=== PATIENT | male | born 1970 | race Caucasian/White ===

== ENCOUNTER 2023-04-23 11:59 | Day surgery (SDC) | payer BC ==
--- NOTE | 2023-04-20 11:33 | RAD REPORT ---
EXAM DESCRIPTION: RAD - Chest Pa And Lat (2 Views) - 04/20/2023 11:25 am CLINICAL HISTORY: Pre op pending mass removal right foot COMPARISON: No comparisons FINDINGS: Lines: None. Lungs: No evidence of edema or pneumonia. Pleural: No significant pleural effusions or pneumothorax. Cardiac: The heart size is within normal limits. Mediastinum: Within normal limits. Bones: No acute fractures. Other: None IMPRESSION: No acute cardiopulmonary disease.
[2023-04-20 12:00] LABS: Absolute Eosinophils 0.1 K/uL (0-0.5); Absolute Lymphocytes (CBC) 1.4 K/uL (0.7-4.9); Absolute Monocytes 0.5 K/uL (0.1-1.3); Absolute Neutrophil 3.3 K/uL (1.8-8.0); Basophils % 0.3 % (0-1.3); Eosinophils % 1.1 % (0-4.4); Hematocrit 40.9 % (39.6-49.0); Hemoglobin 14.1 g/dL (13.6-17.9); Lymphocytes % 27.3 % (15.3-44.8); MCH 32.5 pg (27.0-35.0); MCHC 34.5 g/dL (32.0-36.0); MCV 94.3 fL (80-100); MPV 8.3 fL (7.6-11.3); Monocytes % 9.3 % (3.3-12.3); Nucleated Red Blood Cells % 0.1 % (0-0); Platelets 257 thou/uL (152-406); RBC Red Blood Cell Count 4.34 M/uL (4.33-5.43); Red Cell Distribution Width 12.7 % (12.1-15.2)
[2023-04-20 12:15] LABS: Anion Gap 8.7 mEq/L (5.0-15.0); Potassium 4.7 mEq/L (3.5-5.1)
--- NOTE | 2023-04-20 17:03 | EKG ---
Test Date: 2023-04-20 Test Time: 12:09:31 Hand Stonecutter: KALANI MEASUREMENT RESULTS: Intervals: Rate: 54 IL: 162 QRSD: 90 QT: 424 QTc: 402 [place]: P: 50 IL: 162 QRS: 37 T: 35 INTERPRETIVE STATEMENTS: Sinus bradycardia Low voltage QRS Borderline ECG No previous ECG available for comparison Electronically Signed On 04-20-23 17:02:10 CATALYST IMPREGNATOR by Jesus Manuel Mock
--- NOTE | 2023-04-21 17:48 | PREOPHP ---
Date of Admission: 04/23/2023 History Of Present Illness: This patient presented to my office with a chief complaint of a soft tis doyle mass growing on the side of his right foot at the fifth MPJ present for approximately 4 months, w orse with activity, soreness, throbbing. Severity is moderate. The patient requests surgical evalua tion. Review of Systems: Positive for low back pain. Medical History: High cholesterol, hypertension, and obesity. Surgical History: Unremarkable. Family History: Father is diagnosed with cancer, heart disease. Social History: The patient is an occasional smoker. The patient does drink alcohol socially. No recreational drug use. Current Medications: Include lisinopril 20 mg and simvastatin 40 mg. Allergies: NKDA. Physical Examination: Vital Signs: Height is 72 inches, weight 265 pounds. General appearance: Healthy, well developed, well nourished, well oriented x3. Vascular: Evaluation reveals dorsalis pedis and posterior tibial pulses to be 4 bilaterally. Capill casi refill time is less than 3 seconds to all toes. Temperature gradient is within normal limits. T here is no claudication complaint, varicosities, or signs of DVT bilaterally. Musculoskeletal: Evaluation shows a rigid cavus foot type bilaterally. Subtalar joint shows normal position bilaterally. Forefoot shows supinates in the adductus bilaterally. Equinus is noted to be 0 degrees bilaterally per goniometer measurement. There is a subcutaneous soft tissue mass located a t the fifth MPJ on the right foot. It is slightly movable under the skin. It measures approximately 4 cm x 3.5 cm with no skin changes seen. Lower extremity muscle strength is equal and symmetrical b ilaterally. Knees are noted to be normal alignment. Ankle is in normal alignment bilaterally. Gait is within normal limits. No tenderness on palpation of the plantar fascia. Skin: Evaluation reveals no rash, ulcer, tumor, or contracture except mild callus sub fifth MPJ bila terally. Neurologic: Evaluation reveals deep tendon reflexes for the patellar and Achilles to be 5/5 bilatera lly. Vibratory and sharp dull sensation is within normal limits. Imaging: X-ray evaluation of the patient is unremarkable with no soft tissue changes or bone changes seen in the area of the fifth MPJ on the right foot. MRI evaluation shows a 3 cm x 2.8 cm x 1.3 cm ovoid mass hyperintense in the T2 phase consistent with the cystic lesions, smooth linear peripheral enhancement, but no definitive internal enhancement or nodularity. Assessment: Soft tissue mass, right foot; pain in right foot. The treatment plan is for excision of soft tissue mass for biopsy. The patient understands that no exact diagnosis can be given until the growth is excised and sent for pathology. The patient will have scheduled surgery after his trip at the end of March, so as now to return to the office for surgery. He was originally seen a few mo nths ago. The surgery was explained to the patient necessitating possible crutches, stitches for mae roximately 2 weeks. The patient understands risks, benefits, alternatives of the above-mentioned pro cedure including, but not limited to the risk of pain, swelling, numbness, stiffness, infection, recu rrence of the soft tissue mass and continued pain and scarring. The patient will be medically evalua kait by Anesthesia. Preoperative labs have been performed. The patient has been dispensed bandaging dry postoperatively, has been instructed on use of cold therapy unit. Postop medications for pain were sent to the pharmacy for the patient. The patient is scheduled for surgery at the [facility] on April 23, 2023. FERNANDO Voice ID: [id number]
[2023-04-23] MEDS ORDERED: Ringers Lactate 1,000 ML IV ONE (12:17)
[2023-04-23] MEDS ORDERED: LIDOCAINE 1% MPF 5 ML VIAL ONE (13:28)
[2023-04-23] MEDS ORDERED: propofoL 200 MG/20 ML VIAL IV ONE (13:28)
[2023-04-23] MEDS ORDERED: MIDAZOLAM HCL 2 MG/2 ML INJ ONE (13:29)
[2023-04-23] MEDS ORDERED: FENTANYL CITR 100 MCG/2 ML ONE (13:29)
[2023-04-23] MEDS: CEFAZOLIN SODIUM 1 GM/VIAL ONE (13:40)
[2023-04-23] MEDS ORDERED: dexAMETHasone 10 MG/ML VIAL ONE (13:51)
[2023-04-23] MEDS ORDERED: ONDANSETRON 4 MG/2 ML VIAL ONE (13:51)
[2023-04-23] MEDS ORDERED: KETOROLAC 30 MG/ML INJ ONE (13:51)
[2023-04-23 17:04] VITALS: BP 118/68; TEMP 97.2; O2SAT 98
--- NOTE | 2023-04-24 01:48 | OP ---
Date of Procedure: 04/23/2023 Surgeon: Ignacio Weaver DPM Preoperative Diagnosis: Soft tissue mass, right foot fifth metatarsophalangeal joint laterally and p lantarly. Postoperative Diagnosis: Soft tissue mass, right foot fifth metatarsophalangeal joint laterally and plantarly. Procedure: Excision of soft tissue mass, fifth metatarsophalangeal joint, right foot. Anesthesia: General. Description Of Procedure: Patient was brought into the operating room, placed on the operating room table in supine position. General anesthesia was induced. The patient was prepped and draped in the usual sterile manner and the right extremity was elevated to 60 degrees to exsanguinate the blood carrillo pply. Pneumatic ankle tourniquet was elevated to 250 mmHg. Attention was then directed to the fifth MPJ laterally where a 6 cm incision was made along the lateral aspect of the fifth metatarsal shaft extending onto the base of the proximal phalanx area of the fifth toe. The incision was deepened via sharp and blunt dissection. All neurologic structures were avoided. All bleeders were clamped and bovied. Utilizing sharp and blunt dissection, skin was with a good layer away from the sof t tissue mass, which was immediately visible underneath the skin. The area was dissected with blunt dissection dorsally until we reached the fifth metatarsal shaft and the soft tissue mass, w hich was fibrously attached to the soft tissue around the fifth metatarsal shaft. It was then freed distally and proximally along the dorsal area. Next, plantar approach was made, dissectin g bluntly and freeing the area. The dorsal medial edge of the mass was and loosened and th is was then grabbed with an iris clamp and pulled to create tension and blunt and scissor dissection was utilized to free it from its soft tissue. There were numerous small capillaries, which were bovi ed as they were encountered. The soft tissue mass extended deep plantarly to the fifth metatarsal he ad. It was freed with blunt dissection and scissor dissection and then reflected proximally plantarl y to just past the fifth metatarsal neck where the soft tissue mass was and it was freed from its fib rotic attachments to the soft tissue. It was removed in total measuring approximately 3 cm x 3.5 cm. It was a solid growth well demarcated, but with some extensions that were dissected free from soft tissue. There was no capsule around the growth. The area was flushed with copious amount s of sterile saline. Any bleeders were bovied. There area was flushed with copious amounts sterile saline again. The subcutaneous tissue was closed utilizing 2-0 Vicryl suture. Skin was closed utili zing 4-0 Prolene horizontal mattress suture. The area was injected with 10 cc of 0.5% plain in a blo ck around the fifth metatarsal shaft. The area was then dressed with Adaptic, dry sterile gauze, dry sterile Ange, Kerlix, cold therapy pad, and Joce bandaging. Pneumatic ankle tourniquet was deflated and capillary return was seen to be instantaneous to all toes including the fifth toe. The patient was sent to Recovery in satisfactory condition. FERNANDO Voice ID: [id number] Report ID: [id number]
--- NOTE | 2023-04-24 01:51 | DS ---
Date of Discharge: 04/23/2023 Date Of Surgery: 04/23/2023 Surgeon: Ignacio Weaver DPM Preoperative Diagnosis: Soft tissue mass, right foot fifth metatarsophalangeal joint area. Postoperative Diagnosis: Soft tissue mass, right foot fifth metatarsophalangeal joint area. Procedure: Excision of soft tissue mass right foot fifth metatarsophalangeal joint area. Anesthesia: General. Patient tolerated the procedure and anesthesia well. Local anesthesia was used was injected postoper atively, 10 cc of 0.5% Marcaine plain. The patient will be sent to the same-day surgery, will be bekah wn crutch walking with 4-point gait and a postop shoe. The patient has a cold therapy unit in place and running. The patient has written postop instructions as well as emergency phone number and posto p medication for pain. The patient will be discharged to home for Anesthesia guidelines. FERNANDO Voice ID: [id number] Report ID: [id number]
== END 2023-04-23 16:35 | disposition home or self-care (01) ==
LOC: OR 11:59
PROVIDERS: ATTEND Podiatrist
PROC: 0JBQ0ZZ Excision of Right Foot Subcutaneous Tissue and Fascia, Open Approach (ICD-10-PCS; principal; 2023-04-23 13:30)
DX: D21.21 Benign neoplasm of connective and other soft tissue of right lower limb, including hip (principal); M79.671 Pain in right foot; I10 Essential (primary) hypertension; E78.00 Pure hypercholesterolemia, unspecified; E66.9 Obesity, unspecified; Z68.36 Body mass index [BMI] 36.0-36.9, adult
CPT/HCPCS: 28039; 93005; 85025; 80048; 36415; 88304; 71046; 97161; J2704; J2001; J2250; J3010; J1100; J2405; J7120; J0690; 88305